=== PATIENT | male | born 1955 | race Hispanic/Latino ===

== ENCOUNTER 2022-12-19 15:06 | Outpatient (CLI) | payer MEDICARE | END 2022-12-19 15:07 | disposition home or self-care (01) | LOC: CSHRAD 15:06 | PROVIDERS: ATTEND Family Medicine | DX: R05.9 Cough, unspecified (principal) | CPT/HCPCS: 71046 ==

== ENCOUNTER 2024-12-09 08:50 | Outpatient (CLI) | payer MEDICARE | END 2024-12-09 08:51 | disposition home or self-care (01) | LOC: CSHSLEEP 08:50 | PROVIDERS: ATTEND Family Medicine | DX: G47.33 Obstructive sleep apnea (adult) (pediatric) (principal); R09.89 Other specified symptoms and signs involving the circulatory and respiratory systems; I25.10 Atherosclerotic heart disease of native coronary artery without angina pectoris | CPT/HCPCS: 95811 ==